=== PATIENT | male | born 1960 | race Caucasian/White ===

== ENCOUNTER → 2016-09-26 | Outpatient (REF) | payer BC ==
[~2016-09-26] MED LIST: /TAMS4CA PO; ACET50TA PO; ASPI81TA7 PO; Albuterol Inhaler INH; DICL75TA PO; IMIT50TA PO; LEVO500T PO; LIPI80TA PO; PRIN10TA PO; SENN8.6T7 PO; VITA10002 PO; ZANT150T PO
[2016-09-26 11:34] LABS: ALBUMIN 3.9 GM/DL (3.2-5.2); ALBUMIN/GLOBULIN RATIO 1.05 (1.00-1.93); ALKALINE PHOSPHATASE 91 U/L (45-117); ALT/SGPT 57 U/L (12-78); ANION GAP 9 MEQ/L (8-16); AST/SGOT 29 U/L (15-37); BILIRUBIN,TOTAL 0.5 MG/DL (0.2-1.0); BLOOD UREA NITROGEN 23 MG/DL (7-18); CARBON DIOXIDE LEVEL 28 MEQ/L (21-32); CHLORIDE LEVEL 104 MEQ/L (98-107); CHOLESTEROL LEVEL 267 MG/DL (<200); CREATININE FOR GFR 1.28 MG/DL (0.70-1.30); GLOMERULAR FILTRATION RATE > 60.0 (>56); GLUCOSE, FASTING 108 MG/DL (70-105); SODIUM LEVEL 141 MEQ/L (136-145); TOTAL PROTEIN 7.6 GM/DL (6.4-8.2); TRIGLYCERIDES LEVEL 169 MG/DL (<150)
== END ==
LOC: M SFHCPLAZ 08:46
PROVIDERS: ATTEND Family Medicine
DX: E78.5 Hyperlipidemia, unspecified (principal); R73.01 Impaired fasting glucose; K21.9 Gastro-esophageal reflux disease without esophagitis

== ENCOUNTER 2016-10-29 13:35 | Emergency (ER) | payer BC ==
--- NOTE | 2016-10-29 14:36 | REP ---
Right hand series: Four views. History: Trauma. Findings: Four views right hand demonstrate a dressing overlying a partial soft tissue amputation of the distal tuft of the ring finger. No evidence of fracture or opaque foreign body seen on these views. Signed by Shantanu Shirley MD 10/29/2016 03:06 P
[2016-10-29] MEDS ORDERED: PERCOCET 5MG/325MG TAB As Ordered ONE (14:40)
[2016-10-29] MEDS ORDERED: CLINDAMYCIN 150 MG CAP As Ordered ONE (14:40)
[2016-10-29] MEDS ORDERED: ADACEL/BOOSTRIX VACCINE (DIPHTH/PERTUSS/ACELL/TETANUS)0.5ML SYR (90715) As Ordered ONE (14:40)
--- NOTE | 2016-10-29 15:34 | EDDOCDS ---
Nurse's Notes [facility] Name: Tommie Lopez Age: 56 yrs Sex: Male : 1960 Arrival Date: 10/29/2016 Time: 13:35 Bed 7 Private MD: Ronnie Lai E. 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 We gave 5 mg of morphine and 4 mg of zofran en route". Suicide/Homicide risk assessment- the patient denies having any suicidal and/or homicidal ideations and does not present with any other emotional, behavioral or mental health complaints. Status: Patient is not a financial services rep or dependent. Transition of care: patient was not received from another setting of care. Care prior to arrival: See EMS report. 13:41 Acuity: BENJAMIN Level 3 mb9 13:41 Method Of Arrival: Ambulance mb9 Triage Assessment: 13:47 General: Appears uncomfortable. Pain: Location: dorsal aspect of distal phalanx of mb9 right ring finger and right ring fingernail Pain currently is 3 out of 10 on a pain scale. Pt Declines HIV testing. The patient is triaged at the bedside. See Assessment in Nurses Notes section of ED record. Neurological: Level of Consciousness is awake, alert, Oriented to person, place, time. Respiratory: Airway is patent Respiratory effort is even, unlabored. Injury Description: Amputation sustained to dorsal aspect of distal phalanx of right ring finger. Historical: - Allergies: Codeine Sulfate (Vomit); Keflex (Vomit); PENICILLINS (Hives); Ampicillin; - Home Meds: 1. omeprazole 40 mg Oral cpDR 1 cap once daily 2. Vesicare 10 mg oral tab 1 tab once daily 3. ezetimibe 10 mg oral tab 1 tab once daily 4. lisinopril 10 mg Oral tab 1 tab once daily 5. ranitidine HCl 150 mg Oral cap 1 cap once daily 6. gabapentin 300 mg Oral tab as needed 7. aspirin 81 mg Oral tab 1 tab once daily - PMHx: cervival disc problems; GERD; Hypercholesterolemia; Hypertension; Urinary Incontinence; one functioning kidney; - PSHx: prostate surgery; Cholecystectomy; - Social history: Smoking status: Patient states former smoker of tobacco. No barriers to communication noted, The patient speaks fluent Turkmen. - Family history: Not pertinent. - : The pt / caregiver states he / she is not on anticoagulants. Unable to Verify Home Med List with the patient / caregiver. Note will obtain from pt's pharmacy. - Exposure Risk Screening:: None identified. Screenin:30 Screening information is obtained from the patient. Fall risk: No risks identified. [facility] Assistance ADL's: requires no assistance with activities of daily living. Abuse/DV Screen: The patient / caregiver reports he/she is: not in a situation that causes fear, pain or injury. Nutritional screening: No deficits noted. Advance Directives: There is no active DNR order. home support is adequate. Assessment: 14:54 General: Appears in no apparent distress, comfortable, Behavior is appropriate for age, h cooperative, pleasant. Pain: Location: right hand Pain currently is 10 out of 10 on a pain scale. Neurological: Level of Consciousness is awake, alert, Oriented to person, place, time. Respiratory: Airway is patent Respiratory effort is even, unlabored, Respiratory pattern is regular, symmetrical. Derm: Skin is pink, warm & dry. Musculoskeletal: Range of motion limited in right wrist and right hand and right ring fingernail and dorsal aspect of distal phalanx of right ring finger. Injury Description: Amputation sustained to right ring fingernail and dorsal aspect of distal phalanx of right ring finger is complete, was sustained 1-2 hours ago. 15:30 General: Appears in no apparent distress, comfortable, Behavior is appropriate for age, [facility] cooperative, reviewed discharge instructions with patient and spouse, encouraged and answered questions, bandage in tact to right hand, no visible drainage noted. Reviewed vital signs and wound care with provider then patient. Vital Signs: 13:44 BP 183 / 100 RA Sitting (auto/reg); Pulse 103; Resp 18; Temp 97.0(O); Pulse Ox 93% on jrd R/A; Weight 81.65 kg (R); Height 5 ft. 7 in. (170.18 cm) (R); Pain 3/10; 15:30 BP 178 / 100; Pulse 89; Resp 18; Temp 97.7; Pulse Ox 92% ; Pain 6/10; cjh 13:44 Body Mass Index 28.19 (81.65 kg, 170.18 cm) d Vitals: 13:47 Log In Time N/A - ambulance arrival. mb9 ED Course: 13:36 Patient visited by Jeanie Werner, Assembling Motor Builder. lbd 13:36 Patient moved to Waiting lbd 13:37 Ronnie Lai is Private Physician. lbd 13:37 Patient moved to 7 lbd 13:45 Patient visited by Tucker Lakhani, GARRET. jrd 13:45 Triage Initiated mb9 14:07 [facility] ke 14:08 Patient visited by Quinn Israel FNP. ke 14:08 Patient visited by Quinn Israel FNP. ke 14:40 Hand, Complete Returned. EDMS 14:47 Patient visited by Quinn Israel FNP. ke 14:58 Noel Gamez is Referral Physician. ke 15:32 The patient / caregiver is instructed regarding the plan of care and ED course. cj 15:32 Discontinued lock intact, bleeding controlled, pressure dressing applied, No [facility] redness/swelling at site. No procedures done that require assistance. Administered Medications: 14:54 Drug: Tetanus- Diptheria-Acellular Pertussis 0.5 ml [diphth,pertussis(acel),tetanus 2.5 [facility] Lf unit-8 mcg-5 Lf/0.5mL IM syringe (0.5 mL)] {Blasting Helper: [employer]. Exp: 11/06/2018. Lot #: [id number]. } Route: IM; Site: left deltoid; 14:54 Drug: oxyCODONE-acetaminophen 2 tabs [oxycodone-acetaminophen 5 mg-325 mg tablet (2 cjh tabs)] Route: PO; 15:33 Follow up: Response: Confirmed pt not driving.; No Adverse Reaction; Pain is decreased [facility] 14:54 Drug: Clindamycin 300 mg [clindamycin 150 mg capsule (2 caps)] Route: PO; [facility] Order Results: Radiology Order: Hand, Complete Test: Hand, Complete REASON FOR EXAMINATION: Trauma; Right hand series: Four views.; ; History: Trauma.; ; Findings: Four views right hand demonstrate a dressing overlying a partial soft; tissue amputation of the distal tuft of the ring finger. No evidence of fracture; or opaque foreign body seen on these views.; ; ; Signed by; Shantanu Shirley MD 10/29/2016 03:06 P; Outcome: 14:59 Discharge ordered by Provider. david 15:32 Discharge Assessment: Patient awake, alert and oriented x 3. No cognitive and/or [facility] functional deficits noted. Patient verbalized understanding of disposition instructions. patient administered narcotics - yes. Pt provided with safe discharge. The following High Risk Discharge criteria are identified: None. Discharged to home ambulatory, with significant other. Condition: good Condition: stable Condition: improved. Discharge instructions given to patient, Instructed on discharge instructions, follow up and referral plans. medication usage, no driving heavy equipment, wound care, no drinking with medication, Demonstrated understanding of instructions, medications, Pt was receptive of discharge instructions/ teaching. Prescriptions given X 2. No special radiology studies were completed. Property :Personal belongings accompany Pt. 15:33 Patient left the ED. [facility] Signatures: Dispatcher [employer] EDMS Jeanie Werner, Assembling Motor Builder Unit lbd Milo PerezRN RN Quinn Alvares, BEVERAGE HOST BEVERAGE HOST Kristina WeberRN RN [facility] Tucker Lakhani, PROMOTIONS DIRECTOR PROMOTIONS DIRECTOR Diallo Short,RN RN mb9 LORENA
--- NOTE | 2016-10-29 15:34 | EDDOCDS ---
Physician Documentation [facility] Name: Tommie Lopez Age: 56 yrs Sex: Male : 1960 Arrival Date: 10/29/2016 Time: 13:35 Bed 7 Private MD: Ronnie Lai E. Disposition: 10/29/16 14:59 Discharged to Home/Self Care. 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 - Condition is Stable. - Discharge Instructions: Fingertip Injuries and Amputations. - Prescriptions for Clindamycin HCl 300 mg Oral Capsule - take 1 capsule by ORAL route every 6 hours; 40 capsule. Percocet 5- 325 mg Oral Tablet - take 1 tablet by ORAL route every 6 hours As needed MDD: 6 tabs; 30 tablet. - Medication Reconciliation, Local Pharmacy Hours form. - Follow up: Noel Gamez; When: Call to arrange an appointment; Reason: Wound/Symptom Recheck, Further diagnostic work-up, Continuance of care. - Problem is new. - Symptoms are unchanged. Historical: - Allergies: Codeine Sulfate (Vomit); Keflex (Vomit); PENICILLINS (Hives); Ampicillin; - Home Meds: 1. omeprazole 40 mg Oral cpDR 1 cap once daily 2. Vesicare 10 mg oral tab 1 tab once daily 3. ezetimibe 10 mg oral tab 1 tab once daily 4. lisinopril 10 mg Oral tab 1 tab once daily 5. ranitidine HCl 150 mg Oral cap 1 cap once daily 6. gabapentin 300 mg Oral tab as needed 7. aspirin 81 mg Oral tab 1 tab once daily - PMHx: cervival disc problems; GERD; Hypercholesterolemia; Hypertension; Urinary Incontinence; one functioning kidney; - PSHx: prostate surgery; Cholecystectomy; - Social history: Smoking status: Patient states former smoker of tobacco. No barriers to communication noted, The patient speaks fluent Ghanaian. - Family history: Not pertinent. - : The pt / caregiver states he / she is not on anticoagulants. Unable to Verify Home Med List with the patient / caregiver. Note will obtain from pt's pharmacy. - Exposure Risk Screening:: None identified. Vital Signs: 10/29 13:44 BP 183 / 100 RA Sitting (auto/reg); Pulse 103; Resp 18; Temp 97.0(O); Pulse Ox 93% on jrd R/A; Weight 81.65 kg / 180.01 lbs (R); Height 5 ft. 7 in. (170.18 cm) (R); Pain 3/10; 15:30 BP 178 / 100; Pulse 89; Resp 18; Temp 97.7; Pulse Ox 92% ; Pain 6/10; cj 13:44 Body Mass Index 28.19 (81.65 kg, 170.18 cm) jrd MDM: 13:49 Hand, Complete Ordered. EDMS 14:26 Tetanus- Diptheria-Acellular Pertussis 0.5 ml IM once; Routine booster 10-64yrs, >64 ke with child contact [employer] [place] [employer] ordered. 14:26 oxyCODONE-acetaminophen 5 mg-325 mg 2 tabs PO once ordered. ke 14:26 Clindamycin 300 mg PO once ordered. ke Administered Medications: 14:54 Drug: Tetanus- Diptheria-Acellular Pertussis 0.5 ml [diphth,pertussis(acel),tetanus 2.5 cj Lf unit-8 mcg-5 Lf/0.5mL IM syringe (0.5 mL)] {Rod Welder: [employer]. Exp: 11/06/2018. Lot #: [id number]. } Route: IM; Site: left deltoid; 14:54 Drug: oxyCODONE-acetaminophen 2 tabs [oxycodone-acetaminophen 5 mg-325 mg tablet (2 cjh tabs)] Route: PO; 15:33 Follow up: Response: Confirmed pt not driving.; No Adverse Reaction; Pain is decreased [facility] 14:54 Drug: Clindamycin 300 mg [clindamycin 150 mg capsule (2 caps)] Route: PO; [facility] Signatures: Dispatcher [employer] EDMS Milo Perez,RN RN Quinn Alvares, TITLE I DIRECTOR TITLE I DIRECTOR Kristina WeberRN RN Diallo BooRN RN mb9 MTDD
--- NOTE | 2016-10-31 16:34 | EDDOCDS ---
Physician Documentation [facility] Name: Tommie Lopez Age: 56 yrs Sex: Male : 1960 Arrival Date: 10/29/2016 Time: 13:35 Bed 7 Private MD: Ronnie Lai E. Disposition: 10/29/16 14:59 Discharged to Home/Self Care. 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 - Condition is Stable. - Discharge Instructions: Fingertip Injuries and Amputations. - Prescriptions for Clindamycin HCl 300 mg Oral Capsule - take 1 capsule by ORAL route every 6 hours; 40 capsule. Percocet 5- 325 mg Oral Tablet - take 1 tablet by ORAL route every 6 hours As needed MDD: 6 tabs; 30 tablet. - Medication Reconciliation, Local Pharmacy Hours form. - Follow up: Noel Gamez; When: Call to arrange an appointment; Reason: Wound/Symptom Recheck, Further diagnostic work-up, Continuance of care. - Problem is new. - Symptoms are unchanged. Historical: - Allergies: Codeine Sulfate (Vomit); Keflex (Vomit); PENICILLINS (Hives); Ampicillin; - Home Meds: 1. omeprazole 40 mg Oral cpDR 1 cap once daily 2. Vesicare 10 mg oral tab 1 tab once daily 3. ezetimibe 10 mg oral tab 1 tab once daily 4. lisinopril 10 mg Oral tab 1 tab once daily 5. ranitidine HCl 150 mg Oral cap 1 cap once daily 6. gabapentin 300 mg Oral tab as needed 7. aspirin 81 mg Oral tab 1 tab once daily - PMHx: cervival disc problems; GERD; Hypercholesterolemia; Hypertension; Urinary Incontinence; one functioning kidney; - PSHx: prostate surgery; Cholecystectomy; - Social history: Smoking status: Patient states former smoker of tobacco. No barriers to communication noted, The patient speaks fluent Ukrainian. - Family history: Not pertinent. - : The pt / caregiver states he / she is not on anticoagulants. Unable to Verify Home Med List with the patient / caregiver. Note will obtain from pt's pharmacy. - Exposure Risk Screening:: None identified. Vital Signs: 10/29 13:44 BP 183 / 100 RA Sitting (auto/reg); Pulse 103; Resp 18; Temp 97.0(O); Pulse Ox 93% on jrd R/A; Weight 81.65 kg / 180.01 lbs (R); Height 5 ft. 7 in. (170.18 cm) (R); Pain 3/10; 15:30 BP 178 / 100; Pulse 89; Resp 18; Temp 97.7; Pulse Ox 92% ; Pain 6/10; cjh 13:44 Body Mass Index 28.19 (81.65 kg, 170.18 cm) jrd MDM: 13:49 Hand, Complete Ordered. EDMS 14:26 Tetanus- Diptheria-Acellular Pertussis 0.5 ml IM once; Routine booster 10-64yrs, >64 ke with child contact [employer] ordered. 14:26 oxyCODONE-acetaminophen 5 mg-325 mg 2 tabs PO once ordered. ke 14:26 Clindamycin 300 mg PO once ordered. ke 15:49 [facility] Payment Agreement was scanned into [employer] and attached to record. 10/30 13:28 T-Sheet-- Draft Copy was scanned into [employer] and attached to record. gb 13:28 PCR was scanned into [employer] and attached to record. gb 13:29 Rhythm Strip was scanned into [employer] and attached to record. gb Administered Medications: 10/29 14:54 Drug: Tetanus- Diptheria-Acellular Pertussis 0.5 ml [diphth,pertussis(acel),tetanus 2.5 [facility] Lf unit-8 mcg-5 Lf/0.5mL IM syringe (0.5 mL)] {Acoustic Sensor Operator: [employer]. Exp: 11/06/2018. Lot #: [id number]. } Route: IM; Site: left deltoid; 14:54 Drug: oxyCODONE-acetaminophen 2 tabs [oxycodone-acetaminophen 5 mg-325 mg tablet (2 cjh tabs)] Route: PO; 15:33 Follow up: Response: Confirmed pt not driving.; No Adverse Reaction; Pain is decreased [facility] 14:54 Drug: Clindamycin 300 mg [clindamycin 150 mg capsule (2 caps)] Route: PO; [facility] Signatures: Dispatcher [employer] EDMS Milo Perez,ELIAS RN Danelle Eduardo, Reg Reg gb Zac Hayden, Reg Reg lg Quinn Israel, ELECTRIC MOTOR ANALYST ELECTRIC MOTOR ANALYST Kristina WeberRN RN cj Diallo GarciaRN RN mb9 The chart was reviewed and I authenticate all verbal orders and agree with the evaluation and treatment provided.Attachments: 15:49 [facility] Payment Agreement lg 10/30 13:28 T-Sheet-- Draft Copy gb Chart Complete MTDD
--- NOTE | 2016-10-31 16:34 | EDDOCDS ---
Nurse's Notes [facility] Name: Tommie Lopez Age: 56 yrs Sex: Male : 1960 Arrival Date: 10/29/2016 Time: 13:35 Bed 7 Private MD: Ronnie Lai E. 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 We gave 5 mg of morphine and 4 mg of zofran en route". Suicide/Homicide risk assessment- the patient denies having any suicidal and/or homicidal ideations and does not present with any other emotional, behavioral or mental health complaints. Status: Patient is not a creative services writer or dependent. Transition of care: patient was not received from another setting of care. Care prior to arrival: See EMS report. 13:41 Acuity: BENJAMIN Level 3 mb9 13:41 Method Of Arrival: Ambulance mb9 Triage Assessment: 13:47 General: Appears uncomfortable. Pain: Location: dorsal aspect of distal phalanx of mb9 right ring finger and right ring fingernail Pain currently is 3 out of 10 on a pain scale. Pt Declines HIV testing. The patient is triaged at the bedside. See Assessment in Nurses Notes section of ED record. Neurological: Level of Consciousness is awake, alert, Oriented to person, place, time. Respiratory: Airway is patent Respiratory effort is even, unlabored. Injury Description: Amputation sustained to dorsal aspect of distal phalanx of right ring finger. Historical: - Allergies: Codeine Sulfate (Vomit); Keflex (Vomit); PENICILLINS (Hives); Ampicillin; - Home Meds: 1. omeprazole 40 mg Oral cpDR 1 cap once daily 2. Vesicare 10 mg oral tab 1 tab once daily 3. ezetimibe 10 mg oral tab 1 tab once daily 4. lisinopril 10 mg Oral tab 1 tab once daily 5. ranitidine HCl 150 mg Oral cap 1 cap once daily 6. gabapentin 300 mg Oral tab as needed 7. aspirin 81 mg Oral tab 1 tab once daily - PMHx: cervival disc problems; GERD; Hypercholesterolemia; Hypertension; Urinary Incontinence; one functioning kidney; - PSHx: prostate surgery; Cholecystectomy; - Social history: Smoking status: Patient states former smoker of tobacco. No barriers to communication noted, The patient speaks fluent Dominican. - Family history: Not pertinent. - : The pt / caregiver states he / she is not on anticoagulants. Unable to Verify Home Med List with the patient / caregiver. Note will obtain from pt's pharmacy. - Exposure Risk Screening:: None identified. Screenin:30 Screening information is obtained from the patient. Fall risk: No risks identified. [facility] Assistance ADL's: requires no assistance with activities of daily living. Abuse/DV Screen: The patient / caregiver reports he/she is: not in a situation that causes fear, pain or injury. Nutritional screening: No deficits noted. Advance Directives: There is no active DNR order. home support is adequate. Assessment: 14:54 General: Appears in no apparent distress, comfortable, Behavior is appropriate for age, h cooperative, pleasant. Pain: Location: right hand Pain currently is 10 out of 10 on a pain scale. Neurological: Level of Consciousness is awake, alert, Oriented to person, place, time. Respiratory: Airway is patent Respiratory effort is even, unlabored, Respiratory pattern is regular, symmetrical. Derm: Skin is pink, warm & dry. Musculoskeletal: Range of motion limited in right wrist and right hand and right ring fingernail and dorsal aspect of distal phalanx of right ring finger. Injury Description: Amputation sustained to right ring fingernail and dorsal aspect of distal phalanx of right ring finger is complete, was sustained 1-2 hours ago. 15:30 General: Appears in no apparent distress, comfortable, Behavior is appropriate for age, [facility] cooperative, reviewed discharge instructions with patient and spouse, encouraged and answered questions, bandage in tact to right hand, no visible drainage noted. Reviewed vital signs and wound care with provider then patient. Vital Signs: 13:44 BP 183 / 100 RA Sitting (auto/reg); Pulse 103; Resp 18; Temp 97.0(O); Pulse Ox 93% on jrd R/A; Weight 81.65 kg (R); Height 5 ft. 7 in. (170.18 cm) (R); Pain 3/10; 15:30 BP 178 / 100; Pulse 89; Resp 18; Temp 97.7; Pulse Ox 92% ; Pain 6/10; cjh 13:44 Body Mass Index 28.19 (81.65 kg, 170.18 cm) jrd Vitals: 13:47 Log In Time N/A - ambulance arrival. mb9 ED Course: 13:36 Patient visited by Jeanie Werner, Cafeteria Attendant. lbd 13:36 Patient moved to Waiting lbd 13:37 Ronnie Lai is Private Physician. lbd 13:37 Patient moved to 7 lbd 13:45 Patient visited by Tucker Lakhani, GARRET. jrd 13:45 Triage Initiated mb9 14:07 Quinn Israel FNP is PHCP. ke 14:08 Patient visited by Quinn Israel FNP. ke 14:08 Patient visited by Quinn Israel FNP. ke 14:40 Hand, Complete Returned. EDMS 14:47 Patient visited by Quinn Israel FNP. ke 14:58 Noel Gamez is Referral Physician. ke 15:32 The patient / caregiver is instructed regarding the plan of care and ED course. cjh 15:32 Discontinued lock intact, bleeding controlled, pressure dressing applied, No cjh redness/swelling at site. No procedures done that require assistance. 15:49 [facility] Payment Agreement was scanned into [employer] and attached to record. lg 10/30 13:28 T-Sheet-- Draft Copy was scanned into [employer] and attached to record. gb 13:28 PCR was scanned into [employer] and attached to record. gb 13:29 Rhythm Strip was scanned into [employer] and attached to record. gb Administered Medications: 10/29 14:54 Drug: Tetanus- Diptheria-Acellular Pertussis 0.5 ml [diphth,pertussis(acel),tetanus 2.5 cj Lf unit-8 mcg-5 Lf/0.5mL IM syringe (0.5 mL)] {Assistant Men'S Soccer Coach: [employer]. Exp: 11/06/2018. Lot #: [id number]. } Route: IM; Site: left deltoid; 14:54 Drug: oxyCODONE-acetaminophen 2 tabs [oxycodone-acetaminophen 5 mg-325 mg tablet (2 cjh tabs)] Route: PO; 15:33 Follow up: Response: Confirmed pt not driving.; No Adverse Reaction; Pain is decreased [facility] 14:54 Drug: Clindamycin 300 mg [clindamycin 150 mg capsule (2 caps)] Route: PO; [facility] Attachments: 13:29 Rhythm Strip gb Order Results: Radiology Order: Hand, Complete Test: Hand, Complete REASON FOR EXAMINATION: Trauma; Right hand series: Four views.; ; History: Trauma.; ; Findings: Four views right hand demonstrate a dressing overlying a partial soft; tissue amputation of the distal tuft of the ring finger. No evidence of fracture; or opaque foreign body seen on these views.; ; ; Signed by; Shantanu Shirley MD 10/29/2016 03:06 P; Outcome: 10/29 14:59 Discharge ordered by Provider. david 15:32 Discharge Assessment: Patient awake, alert and oriented x 3. No cognitive and/or [facility] functional deficits noted. Patient verbalized understanding of disposition instructions. patient administered narcotics - yes. Pt provided with safe discharge. The following High Risk Discharge criteria are identified: None. Discharged to home ambulatory, with significant other. Condition: good Condition: stable Condition: improved. Discharge instructions given to patient, Instructed on discharge instructions, follow up and referral plans. medication usage, no driving heavy equipment, wound care, no drinking with medication, Demonstrated understanding of instructions, medications, Pt was receptive of discharge instructions/ teaching. Prescriptions given X 2. No special radiology studies were completed. Property :Personal belongings accompany Pt. 15:33 Patient left the ED. [facility] Signatures: Dispatcher [employer] EDMS Jeanie Werner, Cafeteria Attendant Unit lbd Milo Perez,RN RN antwank Danelle Hansen, Reg Reg gb Zac Hayden, Reg Reg lg Quinn Israel, HIGH DENSITY PRESS OPERATOR HIGH DENSITY PRESS OPERATOR Kristina WeberRN RN [facility] Tucker Lakhani, GARRET GEODETIC ADVISOR Diallo Short,RN RN mb9 Chart Complete MTDD
--- NOTE | 2016-10-31 16:34 | EDDOCDS ---
Physician Documentation [facility] Name: Tommie Lopez Age: 56 yrs Sex: Male : 1960 Arrival Date: 10/29/2016 Time: 13:35 Bed 7 Private MD: Ronnie Lai E. Disposition: 10/29/16 14:59 Discharged to Home/Self Care. 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 - Condition is Stable. - Discharge Instructions: Fingertip Injuries and Amputations. - Prescriptions for Clindamycin HCl 300 mg Oral Capsule - take 1 capsule by ORAL route every 6 hours; 40 capsule. Percocet 5- 325 mg Oral Tablet - take 1 tablet by ORAL route every 6 hours As needed MDD: 6 tabs; 30 tablet. - Medication Reconciliation, Local Pharmacy Hours form. - Follow up: Noel Gamez; When: Call to arrange an appointment; Reason: Wound/Symptom Recheck, Further diagnostic work-up, Continuance of care. - Problem is new. - Symptoms are unchanged. Historical: - Allergies: Codeine Sulfate (Vomit); Keflex (Vomit); PENICILLINS (Hives); Ampicillin; - Home Meds: 1. omeprazole 40 mg Oral cpDR 1 cap once daily 2. Vesicare 10 mg oral tab 1 tab once daily 3. ezetimibe 10 mg oral tab 1 tab once daily 4. lisinopril 10 mg Oral tab 1 tab once daily 5. ranitidine HCl 150 mg Oral cap 1 cap once daily 6. gabapentin 300 mg Oral tab as needed 7. aspirin 81 mg Oral tab 1 tab once daily - PMHx: cervival disc problems; GERD; Hypercholesterolemia; Hypertension; Urinary Incontinence; one functioning kidney; - PSHx: prostate surgery; Cholecystectomy; - Social history: Smoking status: Patient states former smoker of tobacco. No barriers to communication noted, The patient speaks fluent [place]i. - Family history: Not pertinent. - : The pt / caregiver states he / she is not on anticoagulants. Unable to Verify Home Med List with the patient / caregiver. Note will obtain from pt's pharmacy. - Exposure Risk Screening:: None identified. Vital Signs: 10/29 13:44 BP 183 / 100 RA Sitting (auto/reg); Pulse 103; Resp 18; Temp 97.0(O); Pulse Ox 93% on jrd R/A; Weight 81.65 kg / 180.01 lbs (R); Height 5 ft. 7 in. (170.18 cm) (R); Pain 3/10; 15:30 BP 178 / 100; Pulse 89; Resp 18; Temp 97.7; Pulse Ox 92% ; Pain 6/10; cjh 13:44 Body Mass Index 28.19 (81.65 kg, 170.18 cm) jrd MDM: 13:49 Hand, Complete Ordered. EDMS 14:26 Tetanus- Diptheria-Acellular Pertussis 0.5 ml IM once; Routine booster 10-64yrs, >64 ke with child contact [employer] ordered. 14:26 oxyCODONE-acetaminophen 5 mg-325 mg 2 tabs PO once ordered. ke 14:26 Clindamycin 300 mg PO once ordered. ke 15:49 [facility] Payment Agreement was scanned into [employer] and attached to record. 10/30 13:28 T-Sheet-- Draft Copy was scanned into [employer] and attached to record. gb 13:28 PCR was scanned into [employer] and attached to record. gb 13:29 Rhythm Strip was scanned into [employer] and attached to record. gb Administered Medications: 10/29 14:54 Drug: Tetanus- Diptheria-Acellular Pertussis 0.5 ml [diphth,pertussis(acel),tetanus 2.5 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 Exp: 11/06/2018. Lot #: [id number]. } Route: IM; Site: left deltoid; 14:54 Drug: oxyCODONE-acetaminophen 2 tabs [oxycodone-acetaminophen 5 mg-325 mg tablet (2 cjh tabs)] Route: PO; 15:33 Follow up: Response: Confirmed pt not driving.; No Adverse Reaction; Pain is decreased [facility] 14:54 Drug: Clindamycin 300 mg [clindamycin 150 mg capsule (2 caps)] Route: PO; [facility] Signatures: Dispatcher [employer] EDMS Milo Perez,ELIAS RN Danelle Eduardo, Reg Reg gb Zac Hayden, Reg Reg lg Quinn Israel, SENIOR SPEECH PATHOLOGIST SENIOR SPEECH PATHOLOGIST Kristina WeberRN RN cj Diallo GarciaRN RN [id number] The chart was reviewed and I authenticate all verbal orders and agree with the evaluation and treatment provided.Attachments: 15:49 [facility] Payment Agreement lg 10/30 13:28 T-Sheet-- Draft Copy gb Chart Complete MTDD
== END 2016-10-29 15:33 | disposition home or self-care (01) ==
LOC: M ED 13:35
DX: S68.624A Partial traumatic transphalangeal amputation of right ring finger, initial encounter (principal); W23.0XXA Caught, crushed, jammed, or pinched between moving objects, initial encounter; Y92.018 Other place in single-family (private) house as the place of occurrence of the external cause; Y93.H9 Activity, other involving exterior property and land maintenance, building and construction; Y99.8 Other external cause status; I10 Essential (primary) hypertension; E78.00 Pure hypercholesterolemia, unspecified; R32 Unspecified urinary incontinence; N28.9 Disorder of kidney and ureter, unspecified; K21.9 Gastro-esophageal reflux disease without esophagitis; M50.80 Other cervical disc disorders, unspecified cervical region; Z79.899 Other long term (current) drug therapy; Z79.82 Long term (current) use of aspirin; Z88.5 Allergy status to narcotic agent; Z88.1 Allergy status to other antibiotic agents; Z88.0 Allergy status to penicillin; Z87.891 Personal history of nicotine dependence

== ENCOUNTER → 2017-01-30 | Outpatient (REF) | payer BC ==
[2017-01-30 12:38] LABS: ALKALINE PHOSPHATASE 89 U/L (45-117); ALT/SGPT 61 U/L (12-78); ANION GAP 7 MEQ/L (8-16); AST/SGOT 35 U/L (15-37); BILIRUBIN,TOTAL 0.7 MG/DL (0.2-1.0); BLOOD UREA NITROGEN 21 MG/DL (7-18); CALCIUM LEVEL 9.4 MG/DL (8.5-10.1); CARBON DIOXIDE LEVEL 27 MEQ/L (21-32); CHLORIDE LEVEL 104 MEQ/L (98-107); CHOLESTEROL LEVEL 140 MG/DL (<200); CREATININE FOR GFR 1.18 MG/DL (0.70-1.30); GLOMERULAR FILTRATION RATE > 60.0 (>56); GLUCOSE, FASTING 100 MG/DL (70-105); SODIUM LEVEL 138 MEQ/L (136-145); TRIGLYCERIDES LEVEL 71 MG/DL (<150)
[2017-01-30 12:40] LABS: POTASSIUM SERUM 5.3 MEQ/L (3.5-5.1)
== END ==
LOC: M SFHCPLAZ 09:15
PROVIDERS: ATTEND Family Medicine
DX: Z11.59 Encounter for screening for other viral diseases (principal); E78.5 Hyperlipidemia, unspecified; N18.2 Chronic kidney disease, stage 2 (mild); R73.01 Impaired fasting glucose

== ENCOUNTER → 2017-07-07 | Outpatient (REF) | payer BC ==
[2017-07-07 12:23] LABS: BASO # 0.1 10^3/uL (0.0-0.2); BASO % 0.7 % (0.0-1.0); EOS # 0.2 10^3/uL (0.0-0.50); IMMATURE GRANULOCYTE % 0.4 % (0-0); LYMPH # 2.4 10^3/uL (1.5-4.5); LYMPH % 27.1 % (24.0-44.0); MEAN CORPUSCULAR HEMOGLOBIN 31.3 pg (27.0-33.0); MEAN CORPUSCULAR HGB CONC 32.9 g/dl (32.0-36.5); MEAN CORPUSCULAR VOLUME 95.2 fl (80.0-96.0); MONO # 1.1 10^3/uL (0.0-0.8); MONO % 12.6 % (0.0-5.0); NEUTROPHILS # 5.1 10^3/uL (1.8-7.7); NEUTROPHILS % 57.2 % (36.0-66.0); PLATELET COUNT, AUTOMATED 491 10^3/uL (150-450)
[2017-07-07 12:42] LABS: ALBUMIN 3.9 GM/DL (3.2-5.2); ALBUMIN/GLOBULIN RATIO 0.95 (1.00-1.93); ALKALINE PHOSPHATASE 99 U/L (45-117); ALT/SGPT 36 U/L (12-78); ANION GAP 7 MEQ/L (8-16); AST/SGOT 20 U/L (15-37); BILIRUBIN,TOTAL 0.5 MG/DL (0.2-1.0); BLOOD UREA NITROGEN 20 MG/DL (7-18); CALCIUM LEVEL 9.7 MG/DL (8.5-10.1); CARBON DIOXIDE LEVEL 28 MEQ/L (21-32); CHLORIDE LEVEL 104 MEQ/L (98-107); CREATININE FOR GFR 1.13 MG/DL (0.70-1.30); GLOMERULAR FILTRATION RATE > 60.0 (>56); GLUCOSE, FASTING 103 MG/DL (70-105); SODIUM LEVEL 139 MEQ/L (136-145)
[2017-07-07 12:44] LABS: POTASSIUM SERUM 5.4 MEQ/L (3.5-5.1)
== END ==
LOC: M SFHCPLAZ 09:21
PROVIDERS: ATTEND Family Medicine
DX: N18.2 Chronic kidney disease, stage 2 (mild) (principal); R73.01 Impaired fasting glucose

== ENCOUNTER → 2018-02-25 | Outpatient (REF) | payer BC ==
[2018-02-25 12:13] LABS: BASO # 0.1 10^3/uL (0.0-0.2); BASO % 0.9 % (0.0-1.0); EOS # 0.2 10^3/uL (0.0-0.50); EOS % 2.8 % (0.0-3.0); HEMATOCRIT 47.2 % (42.0-52.0); HEMOGLOBIN 15.8 g/dl (13.5-17.5); IMMATURE GRANULOCYTE % 0.4 % (0-3.0); LYMPH # 2.7 10^3/uL (1.5-4.5); LYMPH % 33.2 % (24.0-44.0); MEAN CORPUSCULAR HEMOGLOBIN 31.5 pg (27.0-33.0); MEAN CORPUSCULAR HGB CONC 33.5 g/dl (32.0-36.5); MONO # 0.9 10^3/uL (0.0-0.8); MONO % 11.4 % (0.0-5.0); NEUTROPHILS # 4.2 10^3/uL (1.8-7.7); NEUTROPHILS % 51.3 % (36.0-66.0); PLATELET COUNT, AUTOMATED 381 10^3/uL (150-450); RED BLOOD COUNT 5.02 10^6/uL (4.30-6.10); RED CELL DISTRIBUTION WIDTH 13.3 % (11.5-14.5); WHITE BLOOD COUNT 8.2 10^3/uL (4.0-10.0)
[2018-02-25 12:35] LABS: ESTIMATED AVERAGE GLUCOSE 120 MG/DL (60-110); HEMOGLOBIN A1c 5.8 %
[2018-02-25 13:06] LABS: ALBUMIN 4.2 GM/DL (3.2-5.2); ALBUMIN/GLOBULIN RATIO 1.14 (1.00-1.93); ALKALINE PHOSPHATASE 105 U/L (45-117); ALT/SGPT 44 U/L (12-78); ANION GAP 7 MEQ/L (8-16); AST/SGOT 34 U/L (7-37); BILIRUBIN,TOTAL 0.8 MG/DL (0.2-1.0); BLOOD UREA NITROGEN 19 MG/DL (7-18); CALCIUM LEVEL 9.2 MG/DL (8.5-10.1); CARBON DIOXIDE LEVEL 27 MEQ/L (21-32); CHLORIDE LEVEL 106 MEQ/L (98-107); CHOLESTEROL LEVEL 233 MG/DL (<200); CHOLESTEROL RISK RATIO 3.883 (<5); CREATININE FOR GFR 1.21 MG/DL (0.70-1.30); FERRITIN 179 NG/ML (26-388); GLOMERULAR FILTRATION RATE > 60.0 (>56); GLUCOSE, FASTING 94 MG/DL (70-100); HDL CHOLESTEROL 60 MG/DL (>40); IRON (FE) 128 UG/DL (65-175); LDL CHOLESTEROL 159.8 MG/DL (<100); MAGNESIUM LEVEL 2.3 MG/DL (1.8-2.4); NON-HDL-C 173 MG/DL; PERCENT SATURATION 36.7 % (19.7-50.0); PSA SCREENING < 0.01 NG/ML (< 4.0); SODIUM LEVEL 140 MEQ/L (136-145); TOTAL IRON BINDING CAPACITY 349 UG/DL (250-450); TOTAL PROTEIN 7.9 GM/DL (6.4-8.2); TRIGLYCERIDES LEVEL 66 MG/DL (<150)
[2018-02-25 13:10] LABS: POTASSIUM SERUM 5.6 MEQ/L (3.5-5.1)
== END ==
LOC: M SFHCPLAZ 10:00
DX: N18.2 Chronic kidney disease, stage 2 (mild) (principal); R73.01 Impaired fasting glucose; Z85.46 Personal history of malignant neoplasm of prostate
CPT/HCPCS: 83550

== ENCOUNTER → 2018-06-30 | Outpatient (REF) | payer BC ==
[2018-06-30 12:51] LABS: ALBUMIN 4.4 GM/DL (3.2-5.2); ALBUMIN/GLOBULIN RATIO 1.47 (1.00-1.93); ALKALINE PHOSPHATASE 99 U/L (45-117); ALT/SGPT 45 U/L (12-78); ANION GAP 5 MEQ/L (8-16); AST/SGOT 31 U/L (7-37); BILIRUBIN,TOTAL 0.5 MG/DL (0.2-1.0); BLOOD UREA NITROGEN 14 MG/DL (7-18); C REACTIVE PROTEIN QUANTITATIV < 0.30 MG/DL (0.00-0.30); CALCIUM LEVEL 8.9 MG/DL (8.5-10.1); CARBON DIOXIDE LEVEL 28 MEQ/L (21-32); CHLORIDE LEVEL 105 MEQ/L (98-107); CHOLESTEROL LEVEL 207 MG/DL (<200); CHOLESTEROL RISK RATIO 4.312 (<5); CPK CREATINE PHOSPHOKINASE 257 U/L (39-308); CREATININE FOR GFR 1.17 MG/DL (0.70-1.30); GLOMERULAR FILTRATION RATE > 60.0 (>56); GLUCOSE, FASTING 99 MG/DL (70-100); HDL CHOLESTEROL 48 MG/DL (>40); LDL CHOLESTEROL 141 MG/DL (<100); MAGNESIUM LEVEL 2.3 MG/DL (1.8-2.4); NON-HDL-C 159 MG/DL; POTASSIUM SERUM 5.4 MEQ/L (3.5-5.1); SODIUM LEVEL 138 MEQ/L (136-145); TOTAL PROTEIN 7.4 GM/DL (6.4-8.2); TRIGLYCERIDES LEVEL 92 MG/DL (<150)
[2018-06-30 12:54] LABS: ESTIMATED AVERAGE GLUCOSE 126 MG/DL (60-110)
== END ==
LOC: M SFHCPLAZ 09:45
DX: E78.5 Hyperlipidemia, unspecified (principal); R73.01 Impaired fasting glucose; E53.8 Deficiency of other specified B group vitamins

== ENCOUNTER 2018-11-23 22:50 | Emergency (ER) | payer BC ==
[2018-11-23] MEDS ORDERED: MORPHINE 4 MG/ML 1ML VIAL/SYRINGE (J2270) IV ONE (23:30)
[2018-11-23] MEDS ORDERED: ONDANSETRON 4MG/2ML VIAL (J2405) As Ordered ONE (23:36)
[2018-11-23] MEDS ORDERED: ONDANSETRON 4MG/2ML VIAL (J2405) IV ONE (23:45)
[2018-11-24] MEDS ORDERED: LIDOCAINE W/EPINEPHRINE 1% 20ML VIAL SC ONE (00:45)
[2018-11-24] MEDS ORDERED: MOXIFLOXACIN 400 MG TAB PO ONE (02:00)
[2018-11-24] MEDS ORDERED: AVEL1TAB3 PO (02:02)
[2018-11-24 03:09] VITALS: BP 118/64
== END 2018-11-24 03:10 | disposition home or self-care (01) ==
LOC: M ED 22:50
DX: S41.112A Laceration without foreign body of left upper arm, initial encounter (principal); S51.812A Laceration without foreign body of left forearm, initial encounter; S51.811A Laceration without foreign body of right forearm, initial encounter; S61.411A Laceration without foreign body of right hand, initial encounter; W54.0XXA Bitten by dog, initial encounter; Y92.099 Unspecified place in other non-institutional residence as the place of occurrence of the external cause; Y93.9 Activity, unspecified; Y99.9 Unspecified external cause status; E11.9 Type 2 diabetes mellitus without complications; K58.9 Irritable bowel syndrome, unspecified; E78.5 Hyperlipidemia, unspecified; Z85.46 Personal history of malignant neoplasm of prostate; F10.21 Alcohol dependence, in remission; Z79.899 Other long term (current) drug therapy; Z88.6 Allergy status to analgesic agent; Z88.8 Allergy status to other drugs, medicaments and biological substances; Z88.5 Allergy status to narcotic agent; Z88.0 Allergy status to penicillin; Z88.1 Allergy status to other antibiotic agents
CPT/HCPCS: 12002; 96374; 96375; 99284; J2270; J2405

== ENCOUNTER → 2018-12-02 | Outpatient (REF) | payer BC ==
[~2018-12-02] MED LIST changes: +AVEL1TAB3 PO
[2018-12-02 10:41] LABS: APPEARANCE, URINE CLEAR (CLEAR); BACTERIA, URINE AUTO NEGATIVE (NEGATIVE); BILIRUBIN, URINE AUTO NEGATIVE (NEGATIVE); BLOOD, URINE BLOOD NEGATIVE (NEGATIVE); COLOR, URINE YELLOW (YELLOW); GLUCOSE, URINE (UA) AUTO 1+ mg/dL (NEGATIVE); KETONE, URINE AUTO NEGATIVE (NEGATIVE); LEUKOCYTE ESTERASE, URINE AUTO NEGATIVE (NEGATIVE); MUCUS, URINE SMALL (NEGATIVE); NITRITE, URINE AUTO NEGATIVE (NEGATIVE); PROTEIN, URINE AUTO NEGATIVE (NEGATIVE); RBC, URINE AUTO 0 /HPF (0-3); SPECIFIC GRAVITY URINE AUTO 1.025 (1.002-1.035); SQUAMOUS EPITHELIAL CELL UR AU 0 /HPF (0-6); UROBILINOGEN, URINE AUTO 0.2 mg/dL (0.0-2.0); WBC, URINE AUTO 0 /HPF (0-3)
[2018-12-02 10:52] LABS: BASO # 0.1 10^3/uL (0.0-0.2); BASO % 0.7 % (0.0-1.0); EOS # 0.9 10^3/uL (0.0-0.50); EOS % 9.7 % (0.0-3.0); HEMATOCRIT 48.4 % (42.0-52.0); HEMOGLOBIN 16.1 g/dl (13.5-17.5); LYMPH # 2.4 10^3/uL (1.5-4.5); LYMPH % 24.6 % (24.0-44.0); MEAN CORPUSCULAR HEMOGLOBIN 31.8 pg (27.0-33.0); MEAN CORPUSCULAR HGB CONC 33.3 g/dl (32.0-36.5); MEAN CORPUSCULAR VOLUME 95.5 fl (80.0-96.0); MONO # 1.1 10^3/uL (0.0-0.8); MONO % 11.4 % (0.0-5.0); NEUTROPHILS # 5.2 10^3/uL (1.8-7.7); NEUTROPHILS % 53.3 % (36.0-66.0); PLATELET COUNT, AUTOMATED 377 10^3/uL (150-450); RED BLOOD COUNT 5.07 10^6/uL (4.30-6.10); WHITE BLOOD COUNT 9.7 10^3/uL (4.0-10.0)
[2018-12-02 11:51] LABS: ALBUMIN 4.3 GM/DL (3.2-5.2); ALT/SGPT 64 U/L (12-78); BILIRUBIN,TOTAL 0.7 MG/DL (0.2-1.0); BLOOD UREA NITROGEN 18 MG/DL (7-18); CALCIUM LEVEL 9.2 MG/DL (8.5-10.1); CARBON DIOXIDE LEVEL 27 MEQ/L (21-32); CHLORIDE LEVEL 104 MEQ/L (98-107); CHOLESTEROL LEVEL 119 MG/DL (<200); CREATININE FOR GFR 1.11 MG/DL (0.70-1.30); GLOMERULAR FILTRATION RATE > 60.0 (>56); GLUCOSE, FASTING 100 MG/DL (70-100); HDL CHOLESTEROL 50 MG/DL (>40); LDL CHOLESTEROL 51 MG/DL (<100); NON-HDL-C 69 MG/DL; POTASSIUM SERUM 5.1 MEQ/L (3.5-5.1); SODIUM LEVEL 140 MEQ/L (136-145); TOTAL PROTEIN 7.5 GM/DL (6.4-8.2); TRIGLYCERIDES LEVEL 92 MG/DL (<150)
[2018-12-02 11:52] LABS: MALB URINE SIEMENS 17.6 MG/L; MAU/CREAT RATIO 9.5 MCG/MG (0.0-30.0)
[2018-12-02 12:50] LABS: HEMOGLOBIN A1c 5.9 %
== END ==
LOC: M SFHCPLAZ 08:39
PROVIDERS: ATTEND Family Medicine
DX: N18.2 Chronic kidney disease, stage 2 (mild) (principal); R73.01 Impaired fasting glucose; E78.5 Hyperlipidemia, unspecified

== ENCOUNTER → 2019-04-01 | Outpatient (REF) | payer BC ==
[~2019-04-01] MED LIST changes: -/TAMS4CA PO; -ACET50TA PO; +FLOM0.4C39 PO; +MAPA500T17 PO
[2019-04-01 10:13] LABS: BASO # 0.1 10^3/uL (0.0-0.2); BASO % 0.6 % (0.0-1.0); EOS # 0.4 10^3/uL (0.0-0.50); EOS % 3.3 % (0.0-3.0); HEMATOCRIT 47.6 % (42.0-52.0); HEMOGLOBIN 15.8 g/dl (13.5-17.5); LYMPH # 2.7 10^3/uL (1.5-4.5); LYMPH % 20.4 % (24.0-44.0); MEAN CORPUSCULAR HEMOGLOBIN 31.4 pg (27.0-33.0); MEAN CORPUSCULAR HGB CONC 33.2 g/dl (32.0-36.5); MEAN CORPUSCULAR VOLUME 94.6 fl (80.0-96.0); MONO # 1.3 10^3/uL (0.0-0.8); MONO % 9.9 % (0.0-5.0); NEUTROPHILS # 8.7 10^3/uL (1.8-7.7); NEUTROPHILS % 65.4 % (36.0-66.0); PLATELET COUNT, AUTOMATED 334 10^3/uL (150-450); RED BLOOD COUNT 5.03 10^6/uL (4.30-6.10); WHITE BLOOD COUNT 13.3 10^3/uL (4.0-10.0)
[2019-04-01 10:21] LABS: ALBUMIN 3.8 GM/DL (3.2-5.2); ALT/SGPT 50 U/L (12-78); BILIRUBIN,TOTAL 0.4 MG/DL (0.2-1.0); BLOOD UREA NITROGEN 14 MG/DL (7-18); CARBON DIOXIDE LEVEL 27 MEQ/L (21-32); CHLORIDE LEVEL 107 MEQ/L (98-107); CREATININE FOR GFR 1.15 MG/DL (0.70-1.30); GLOMERULAR FILTRATION RATE > 60.0 (>56); GLUCOSE, FASTING 105 MG/DL (70-100); POTASSIUM SERUM 4.8 MEQ/L (3.5-5.1); PROSTATIC SPECIFIC AG MONITOR < 0.01 NG/ML (< 4.00); SODIUM LEVEL 140 MEQ/L (136-145); TOTAL PROTEIN 7.2 GM/DL (6.4-8.2)
[2019-04-01 10:32] LABS: HEMOGLOBIN A1c 6.2 %
[2019-04-01 10:43] LABS: TOTAL 25(OH) VITAMIN D 25.9 NG/ML (30.0-100.0)
[2019-04-01 10:44] LABS: PTH INTACT 29.7 PG/ML (18.5-88.0)
== END ==
LOC: M SFHCPLAZ 08:37
PROVIDERS: ATTEND Family Medicine
DX: R73.01 Impaired fasting glucose (principal); N18.2 Chronic kidney disease, stage 2 (mild); Z85.46 Personal history of malignant neoplasm of prostate

== ENCOUNTER → 2019-10-05 | Outpatient (CLI) | payer BC ==
[2019-10-05 13:25] LABS: HEMATOCRIT 50.5 % (42.0-52.0)
[2019-10-05 13:56] LABS: ALBUMIN 3.9 GM/DL (3.2-5.2); ALT/SGPT 39 U/L (12-78); BILIRUBIN,TOTAL 0.6 MG/DL (0.2-1.0); BLOOD UREA NITROGEN 18 MG/DL (7-18); CALCIUM LEVEL 9.5 MG/DL (8.5-10.1); CARBON DIOXIDE LEVEL 27 MEQ/L (21-32); CHLORIDE LEVEL 106 MEQ/L (98-107); CHOLESTEROL LEVEL 189 MG/DL (<200); CHOLESTEROL RISK RATIO 3.857 (<5); CREATININE FOR GFR 1.23 MG/DL (0.70-1.30); FREE T4 0.79 NG/DL (0.76-1.46); GLOMERULAR FILTRATION RATE > 60.0 (>56); GLUCOSE, FASTING 94 MG/DL (70-100); HDL CHOLESTEROL 49 MG/DL (>40); LDL CHOLESTEROL 119 MG/DL (<100); NON-HDL-C 140 MG/DL; SODIUM LEVEL 139 MEQ/L (136-145); TOTAL PROTEIN 7.4 GM/DL (6.4-8.2); TRIGLYCERIDES LEVEL 107 MG/DL (<150); VITAMIN B12 LEVEL 897 PG/ML (247-911)
[2019-10-05 14:14] LABS: APPEARANCE, URINE CLEAR (CLEAR); BACTERIA, URINE AUTO NEGATIVE (NEGATIVE); BILIRUBIN, URINE AUTO NEGATIVE (NEGATIVE); BLOOD, URINE BLOOD NEGATIVE (NEGATIVE); COLOR, URINE YELLOW (YELLOW); GLUCOSE, URINE (UA) AUTO 1+ mg/dL (NEGATIVE); KETONE, URINE AUTO NEGATIVE (NEGATIVE); LEUKOCYTE ESTERASE, URINE AUTO NEGATIVE (NEGATIVE); NITRITE, URINE AUTO NEGATIVE (NEGATIVE); PROTEIN, URINE AUTO NEGATIVE (NEGATIVE); RBC, URINE AUTO 0 /HPF (0-3); SPECIFIC GRAVITY URINE AUTO 1.015 (1.002-1.035); SQUAMOUS EPITHELIAL CELL UR AU 0 /HPF (0-6); UROBILINOGEN, URINE AUTO 0.2 mg/dL (0.0-2.0); WBC, URINE AUTO 0 /HPF (0-3)
[2019-10-05 14:33] LABS: MALB URINE SIEMENS 6.2 MG/L; MAU/CREAT RATIO 5.7 MCG/MG (0.0-30.0)
== END ==
LOC: M PLALAB 09:49
PROVIDERS: ATTEND Family Medicine
DX: R73.01 Impaired fasting glucose (principal); E78.5 Hyperlipidemia, unspecified; E53.8 Deficiency of other specified B group vitamins

== ENCOUNTER → 2020-03-12 | Outpatient (CLI) | payer BC ==
[2020-03-12 12:11] LABS: BASO # 0.1 10^3/uL (0.0-0.2); BASO % 0.7 % (0.0-1.0); EOS # 0.3 10^3/uL (0.0-0.5); HEMATOCRIT 49.5 % (42.0-52.0); HEMOGLOBIN 16.2 g/dl (13.5-17.5); LYMPH # 2.8 10^3/uL (1.5-5.0); LYMPH % 30.6 % (24.0-44.0); MEAN CORPUSCULAR HEMOGLOBIN 31.3 pg (27.0-33.0); MEAN CORPUSCULAR HGB CONC 32.7 g/dl (32.0-36.5); MEAN CORPUSCULAR VOLUME 95.7 fl (80.0-96.0); MONO % 10.8 % (0.0-5.0); NEUTROPHILS # 4.9 10^3/uL (1.5-8.5); NEUTROPHILS % 54.3 % (36.0-66.0); PLATELET COUNT, AUTOMATED 361 10^3/uL (150-450); RED BLOOD COUNT 5.17 10^6/uL (4.30-6.10)
[2020-03-12 12:24] LABS: THYROID PEROXIDASE ANTIBODY 45.4 U/ML (<60.0)
[2020-03-12 13:07] LABS: ALBUMIN 3.8 GM/DL (3.2-5.2); ALT/SGPT 40 U/L (12-78); BILIRUBIN,TOTAL 0.8 MG/DL (0.2-1.0); BLOOD UREA NITROGEN 18 MG/DL (7-18); CALCIUM LEVEL 9.4 MG/DL (8.5-10.1); CARBON DIOXIDE LEVEL 25 MEQ/L (21-32); CHLORIDE LEVEL 106 MEQ/L (98-107); CREATININE FOR GFR 1.23 MG/DL (0.70-1.30); FERRITIN 163 NG/ML (26-388); FREE T4 0.84 NG/DL (0.76-1.46); GLOMERULAR FILTRATION RATE > 60.0 (>56); GLUCOSE, FASTING 104 MG/DL (70-100); POTASSIUM SERUM 4.9 MEQ/L (3.5-5.1); PROSTATIC SPECIFIC AG MONITOR < 0.01 NG/ML (< 4.00); SODIUM LEVEL 137 MEQ/L (136-145); TOTAL PROTEIN 7.4 GM/DL (6.4-8.2)
[2020-03-12 14:58] LABS: HEMATOCRIT 49.5 % (42.0-52.0)
== END ==
LOC: M PLALAB 09:13
PROVIDERS: ATTEND Family Medicine
DX: N52.9 Male erectile dysfunction, unspecified (principal); E78.5 Hyperlipidemia, unspecified; Z14.8 Genetic carrier of other disease; E53.8 Deficiency of other specified B group vitamins; R73.01 Impaired fasting glucose; Z85.46 Personal history of malignant neoplasm of prostate

== ENCOUNTER → 2020-08-02 | Outpatient (REF) | payer BC ==
[2020-08-02 13:38] LABS: APPEARANCE, URINE CLEAR (CLEAR); BACTERIA, URINE AUTO NEGATIVE (NEGATIVE); BILIRUBIN, URINE AUTO NEGATIVE (NEGATIVE); BLOOD, URINE BLOOD NEGATIVE (NEGATIVE); COLOR, URINE YELLOW (YELLOW); GLUCOSE, URINE (UA) AUTO 2+ mg/dL (NEGATIVE); KETONE, URINE AUTO NEGATIVE (NEGATIVE); LEUKOCYTE ESTERASE, URINE AUTO NEGATIVE (NEGATIVE); MUCUS, URINE SMALL (NEGATIVE); NITRITE, URINE AUTO NEGATIVE (NEGATIVE); PROTEIN, URINE AUTO NEGATIVE (NEGATIVE); RBC, URINE AUTO 0 /HPF (0-3); SPECIFIC GRAVITY URINE AUTO 1.019 (1.002-1.035); SQUAMOUS EPITHELIAL CELL UR AU 0 /HPF (0-6); UROBILINOGEN, URINE AUTO 0.2 mg/dL (0.0-2.0); WBC, URINE AUTO 0 /HPF (0-3)
[2020-08-02 13:49] LABS: ALBUMIN 3.9 GM/DL (3.2-5.2); ALT/SGPT 37 U/L (12-78); BILIRUBIN,TOTAL 0.5 MG/DL (0.2-1.0); BLOOD UREA NITROGEN 17 MG/DL (7-18); C REACTIVE PROTEIN QUANTITATIV 0.66 MG/DL (0.00-0.30); CALCIUM LEVEL 9.1 MG/DL (8.8-10.2); CARBON DIOXIDE LEVEL 28 MEQ/L (21-32); CHLORIDE LEVEL 107 MEQ/L (98-107); CHOLESTEROL LEVEL 222 MG/DL (<200); CHOLESTEROL RISK RATIO 4.352 (<5); CPK CREATINE PHOSPHOKINASE 219 U/L (39-308); CREATININE FOR GFR 1.18 MG/DL (0.70-1.30); GLOMERULAR FILTRATION RATE > 60.0 (>49); GLUCOSE, FASTING 103 MG/DL (70-100); HDL CHOLESTEROL 51 MG/DL (>40); LDL CHOLESTEROL 147 MG/DL (<100); NON-HDL-C 171 MG/DL; POTASSIUM SERUM 5.4 MEQ/L (3.5-5.1); SODIUM LEVEL 139 MEQ/L (136-145); TOTAL PROTEIN 7.3 GM/DL (6.4-8.2); TRIGLYCERIDES LEVEL 120 MG/DL (<150)
[2020-08-02 14:20] LABS: MALB URINE SIEMENS 16.3 MG/L; MAU/CREAT RATIO 14.2 MCG/MG (0.0-30.0)
[2020-08-03 14:13] LABS: ANTINUCLEAR ANTIBODIES DIRECT Negative (Negative); Lyme Disease IgG/IgM Antibodie <0.91 ISR (0.00-0.90); Lyme Disease IgM Ab Quantitati <0.80 index (0.00-0.79)
== END ==
LOC: M SFHCPLAZ 10:51
PROVIDERS: ATTEND Physician Assistant
DX: E78.5 Hyperlipidemia, unspecified (principal); R73.01 Impaired fasting glucose; M25.562 Pain in left knee; M25.572 Pain in left ankle and joints of left foot; M54.2 Cervicalgia; R53.83 Other fatigue

== ENCOUNTER → 2020-10-25 | Outpatient (CLI) | payer BC | LOC: M LABSMTC 13:43 | PROVIDERS: ATTEND Pediatrics | DX: Z20.822 Contact with and (suspected) exposure to COVID-19 (principal) | CPT/HCPCS: C9803; U0003 ==

== ENCOUNTER → 2020-12-26 | Outpatient (REF) | payer BC ==
[2020-12-26 14:51] LABS: BASO # 0.1 10^3/uL (0.0-0.2); BASO % 0.7 % (0.0-1.0); EOS # 0.4 10^3/uL (0.0-0.5); EOS % 3.5 % (0.0-3.0); HEMATOCRIT 51.4 % (42.0-52.0); HEMOGLOBIN 16.6 g/dl (13.5-17.5); LYMPH # 2.9 10^3/uL (1.5-5.0); LYMPH % 26.6 % (24.0-44.0); MEAN CORPUSCULAR HEMOGLOBIN 31.1 pg (27.0-33.0); MEAN CORPUSCULAR HGB CONC 32.3 g/dl (32.0-36.5); MEAN CORPUSCULAR VOLUME 96.4 fl (80.0-96.0); MONO # 1.2 10^3/uL (0.0-0.8); MONO % 11.3 % (2.0-8.0); NEUTROPHILS # 6.2 10^3/uL (1.5-8.5); NEUTROPHILS % 57.4 % (36.0-66.0); PLATELET COUNT, AUTOMATED 411 10^3/uL (150-450); RED BLOOD COUNT 5.33 10^6/uL (4.30-6.10); WHITE BLOOD COUNT 10.8 10^3/uL (4.0-10.0)
[2020-12-26 15:19] LABS: ALT/SGPT 44 U/L (12-78); BILIRUBIN,TOTAL 0.6 MG/DL (0.2-1.0); BLOOD UREA NITROGEN 16 MG/DL (7-18); CALCIUM LEVEL 9.5 MG/DL (8.8-10.2); CARBON DIOXIDE LEVEL 29 MEQ/L (21-32); CHLORIDE LEVEL 107 MEQ/L (98-107); CHOLESTEROL LEVEL 216 MG/DL (<200); CHOLESTEROL RISK RATIO 4.153 (<5); CPK CREATINE PHOSPHOKINASE 197 U/L (39-308); CREATININE FOR GFR 1.17 MG/DL (0.70-1.30); FERRITIN 266 NG/ML (26-388); GLOMERULAR FILTRATION RATE > 60.0 (>49); GLUCOSE, FASTING 107 MG/DL (70-100); HDL CHOLESTEROL 52 MG/DL (>40); LDL CHOLESTEROL 137 MG/DL (<100); NON-HDL-C 164 MG/DL; POTASSIUM SERUM 5.1 MEQ/L (3.5-5.1); SODIUM LEVEL 140 MEQ/L (136-145); TOTAL PROTEIN 7.4 GM/DL (6.4-8.2); TRIGLYCERIDES LEVEL 133 MG/DL (<150)
[2020-12-26 15:26] LABS: VITAMIN B12 LEVEL 714 PG/ML (247-911)
[2020-12-26 15:28] LABS: HEMOGLOBIN A1c 6.2 %
== END ==
LOC: M SFHCPLAZ 09:30
PROVIDERS: ATTEND Family Medicine
DX: E78.5 Hyperlipidemia, unspecified (principal); R73.01 Impaired fasting glucose; I10 Essential (primary) hypertension; E53.8 Deficiency of other specified B group vitamins

== ENCOUNTER → 2021-07-18 | Outpatient (CLI) | payer BC ==
[2021-07-18 15:37] LABS: HEMATOCRIT 51.5 % (42.0-52.0); HEMOGLOBIN 16.7 g/dl (13.5-17.5); MEAN CORPUSCULAR HEMOGLOBIN 31.3 pg (27.0-33.0); MEAN CORPUSCULAR HGB CONC 32.4 g/dl (32.0-36.5); MEAN CORPUSCULAR VOLUME 96.4 fl (80.0-96.0); PLATELET COUNT, AUTOMATED 380 10^3/uL (150-450); RED BLOOD COUNT 5.34 10^6/uL (4.30-6.10); WHITE BLOOD COUNT 10.7 10^3/uL (4.0-10.0)
[2021-07-18 15:48] LABS: ALBUMIN 4.1 GM/DL (3.2-5.2); ALT/SGPT 48 U/L (12-78); BILIRUBIN,TOTAL 0.6 MG/DL (0.2-1.0); BLOOD UREA NITROGEN 16 MG/DL (7-18); CALCIUM LEVEL 9.9 MG/DL (8.8-10.2); CARBON DIOXIDE LEVEL 31 MEQ/L (21-32); CHLORIDE LEVEL 106 MEQ/L (98-107); CREATININE FOR GFR 1.27 MG/DL (0.70-1.30); GLOMERULAR FILTRATION RATE > 60.0 (>49); GLUCOSE, FASTING 104 MG/DL (70-100); POTASSIUM SERUM 5.6 MEQ/L (3.5-5.1); SODIUM LEVEL 138 MEQ/L (136-145); TOTAL PROTEIN 7.7 GM/DL (6.4-8.2)
[2021-07-18 16:11] LABS: ERYTHROCYTE SEDIMENTATION RATE 2 mm/hr (0-20)
== END ==
LOC: M PLALAB 09:15
PROVIDERS: ATTEND Physician Assistant Medical
DX: S10.96XA Insect bite of unspecified part of neck, initial encounter (principal); Y92.9 Unspecified place or not applicable; Y93.9 Activity, unspecified; Y99.9 Unspecified external cause status

== ENCOUNTER → 2021-07-23 | Outpatient (CLI) | payer BC ==
[2021-07-23 14:04] LABS: CALCIUM LEVEL 9.7 MG/DL (8.8-10.2); CREATININE FOR GFR 1.31 MG/DL (0.70-1.30); GLOMERULAR FILTRATION RATE 59.2 (>49); POTASSIUM SERUM 4.5 MEQ/L (3.5-5.1)
== END ==
LOC: M PLALAB 09:52
PROVIDERS: ATTEND Physician Assistant Medical
DX: E87.5 Hyperkalemia (principal)

== ENCOUNTER → 2022-05-07 | Outpatient (CLI) | payer BC ==
[2022-05-07 15:43] LABS: BASO % 0.5 % (0.0-1.0); EOS % 0.1 % (0.0-3.0); HEMATOCRIT 48.5 % (42.0-52.0); HEMOGLOBIN 15.7 g/dl (13.5-17.5); LYMPH # 1.1 10^3/uL (1.5-5.0); LYMPH % 13.6 % (24.0-44.0); MEAN CORPUSCULAR HEMOGLOBIN 30.8 pg (27.0-33.0); MEAN CORPUSCULAR HGB CONC 32.4 g/dl (32.0-36.5); MEAN CORPUSCULAR VOLUME 95.3 fl (80.0-96.0); MONO % 22.8 % (2.0-8.0); NEUTROPHILS # 5.2 10^3/uL (1.5-8.5); NEUTROPHILS % 62.3 % (36.0-66.0); PLATELET COUNT, AUTOMATED 179 10^3/uL (150-450); RED BLOOD COUNT 5.09 10^6/uL (4.30-6.10); WHITE BLOOD COUNT 8.3 10^3/uL (4.0-10.0)
[2022-05-07 16:10] LABS: MONO # 1.9 10^3/uL (0.0-0.8)
[2022-05-07 16:59] LABS: ALBUMIN 3.8 GM/DL (3.2-5.2); ALT/SGPT 46 U/L (12-78); BILIRUBIN,TOTAL 1.9 MG/DL (0.2-1.0); BLOOD UREA NITROGEN 15 MG/DL (7-18); CALCIUM LEVEL 9.1 MG/DL (8.8-10.2); CARBON DIOXIDE LEVEL 26 MEQ/L (21-32); CHLORIDE LEVEL 103 MEQ/L (98-107); CREATININE FOR GFR 1.29 MG/DL (0.70-1.30); GLOMERULAR FILTRATION RATE > 60.0 (>49); GLUCOSE, FASTING 115 MG/DL (70-100); POTASSIUM SERUM 4.5 MEQ/L (3.5-5.1); SODIUM LEVEL 133 MEQ/L (136-145); TOTAL PROTEIN 7.5 GM/DL (6.4-8.2)
[2022-05-07 17:00] LABS: ERYTHROCYTE SEDIMENTATION RATE 6 mm/hr (0-20)
== END ==
LOC: M PLALAB 12:54
PROVIDERS: ATTEND Physician Assistant
DX: R50.9 Fever, unspecified (principal); R30.0 Dysuria; R21 Rash and other nonspecific skin eruption; S20.361A Insect bite (nonvenomous) of right front wall of thorax, initial encounter; W57.XXXA Bitten or stung by nonvenomous insect and other nonvenomous arthropods, initial encounter; Y92.9 Unspecified place or not applicable

== ENCOUNTER → 2022-05-09 | Outpatient (REF) | payer BC | LOC: M LAB REF 18:25 | PROVIDERS: ATTEND Physician Assistant | DX: R39.198 Other difficulties with micturition (principal) ==

== ENCOUNTER 2023-02-22 16:27 | Emergency (ER) | payer BC ==
[~2023-02-22] VITALS: Ht 172.7 cm; Wt 85.7 kg
[2023-02-22 16:28] VITALS: BP 168/98
[2023-02-22] MEDS ORDERED: FLUORESCEIN OPHTH 1MG STRIP OS ONE (17:30)
[2023-02-22] MEDS ORDERED: PROPARACAINE 0.5% OPHTH SOL 15ML OS ONE (17:30)
[2023-02-22] MEDS ORDERED: ERYTHROMYCIN OPHTH OINT OS ONE (19:10)
[2023-02-22] MEDS ORDERED: ERYT5OIN25 OP (19:11)
== END 2023-02-22 19:31 | disposition home or self-care (01) ==
LOC: M ED 16:27
DX: S05.02XA Injury of conjunctiva and corneal abrasion without foreign body, left eye, initial encounter (principal); H11.32 Conjunctival hemorrhage, left eye; J45.909 Unspecified asthma, uncomplicated; I10 Essential (primary) hypertension; Z86.79 Personal history of other diseases of the circulatory system; Z88.0 Allergy status to penicillin; Z88.7 Allergy status to serum and vaccine; Z88.5 Allergy status to narcotic agent; Z79.1 Long term (current) use of non-steroidal anti-inflammatories (NSAID); Z79.811 Long term (current) use of aromatase inhibitors; Z79.899 Other long term (current) drug therapy

== ENCOUNTER → 2023-06-04 | Outpatient (CLI) | payer BC ==
[~2023-06-04] MED LIST changes: +ERYT5OIN25 OP
[2023-06-04 15:27] LABS: BASO # 0.1 10^3/uL (0.0-0.2); BASO % 0.6 % (0.0-1.0); EOS # 0.4 10^3/uL (0.0-0.5); EOS % 4.1 % (0.0-3.0); HEMATOCRIT 50.5 % (42.0-52.0); HEMOGLOBIN 16.3 g/dl (13.5-17.5); LYMPH # 2.5 10^3/uL (1.5-5.0); LYMPH % 23.9 % (24.0-44.0); MEAN CORPUSCULAR HEMOGLOBIN 31.2 pg (27.0-33.0); MEAN CORPUSCULAR HGB CONC 32.3 g/dl (32.0-36.5); MEAN CORPUSCULAR VOLUME 96.6 fl (80.0-96.0); MONO # 1.4 10^3/uL (0.0-0.8); MONO % 12.8 % (2.0-8.0); NEUTROPHILS # 6.2 10^3/uL (1.5-8.5); NEUTROPHILS % 58.2 % (36.0-66.0); PLATELET COUNT, AUTOMATED 424 10^3/uL (150-450); RED BLOOD COUNT 5.23 10^6/uL (4.30-6.10); WHITE BLOOD COUNT 10.6 10^3/uL (4.0-10.0)
[2023-06-04 15:38] LABS: ALBUMIN 3.9 G/DL (3.2-5.2); ALKALINE PHOSPHATASE 87 U/L (46-116); ALT/SGPT 53 U/L (7.0-40); AST/SGOT 41 U/L (<34); BILIRUBIN,TOTAL 0.8 MG/DL (0.3-1.2); BLOOD UREA NITROGEN 16 MG/DL (9-23); CALCIUM LEVEL 9.5 MG/DL (8.3-10.6); CARBON DIOXIDE LEVEL 29 MMOL/L (20-31); CHLORIDE LEVEL 104 MMOL/L (98-107); GLOMERULAR FILTRATION RATE > 60.0 (>49); GLUCOSE, FASTING 112 MG/DL (74-106); POTASSIUM SERUM 5.1 MMOL/L (3.5-5.1); SODIUM LEVEL 141 MMOL/L (136-145); TOTAL PROTEIN 7.3 G/DL (5.7-8.2)
[2023-06-04 15:39] LABS: PROSTATIC SPECIFIC AG MONITOR 0.04 NG/ML (< 4.00)
[2023-06-04 15:43] LABS: FERRITIN 229.8 NG/ML (10.5-307.3)
[2023-06-04 15:47] LABS: TOTAL 25(OH) VITAMIN D 30.9 NG/ML (20.0-100.0)
[2023-06-04 16:11] LABS: HEMOGLOBIN A1c 6.2 % (4.0-6.0)
[2023-06-05 08:51] LABS: PTH INTACT 35.2 PG/ML (18.5-88.0)
[2023-06-06 15:10] LABS: H PYLORI SERUM QUANT IgG ABY 0.29 (0.00-0.79); INSULIN LEVEL 16.1 uIU/mL (2.6-24.9); SOLUBLE TRANSFERRIN RECEPTOR 15.4 nmol/L (12.2-27.3)
== END ==
LOC: M PLALAB 09:10
PROVIDERS: ATTEND Family Medicine
DX: R73.01 Impaired fasting glucose (principal); E53.8 Deficiency of other specified B group vitamins; Z14.8 Genetic carrier of other disease; E55.9 Vitamin D deficiency, unspecified; K21.9 Gastro-esophageal reflux disease without esophagitis; Z85.46 Personal history of malignant neoplasm of prostate

== ENCOUNTER → 2023-10-20 | Outpatient (CLI) | payer BC ==
[2023-10-20 13:59] LABS: BASO # 0.1 10^3/uL (0.0-0.2); BASO % 0.7 % (0.0-1.0); EOS # 0.4 10^3/uL (0.0-0.5); EOS % 3.9 % (0.0-3.0); HEMATOCRIT 51.1 % (42.0-52.0); LYMPH # 2.5 10^3/uL (1.5-5.0); LYMPH % 26.6 % (24.0-44.0); MEAN CORPUSCULAR HEMOGLOBIN 31.1 pg (27.0-33.0); MEAN CORPUSCULAR HGB CONC 33.3 g/dl (32.0-36.5); MEAN CORPUSCULAR VOLUME 93.6 fl (80.0-96.0); MONO # 1.1 10^3/uL (0.0-0.8); MONO % 11.8 % (2.0-8.0); NEUTROPHILS # 5.3 10^3/uL (1.5-8.5); NEUTROPHILS % 56.7 % (36.0-66.0); PLATELET COUNT, AUTOMATED 360 10^3/uL (150-450); RED BLOOD COUNT 5.46 10^6/uL (4.30-6.10); WHITE BLOOD COUNT 9.3 10^3/uL (4.0-10.0)
[2023-10-20 14:19] LABS: HEMOGLOBIN A1c 5.9 % (4.0-6.0)
[2023-10-20 14:23] LABS: PROSTATIC SPECIFIC AG MONITOR 0.04 NG/ML (< 4.00)
[2023-10-20 14:26] LABS: CREATININE, URINE 103.2 MG/DL; MALB URINE SIEMENS < 3.0 MG/L; MAU/CREAT RATIO 2.9 MCG/MG (0.0-30.0)
[2023-10-20 14:28] LABS: ALBUMIN 4.3 G/DL (3.2-5.2); ALKALINE PHOSPHATASE 96 U/L (46-116); ALT/SGPT 37 U/L (7.0-40); AST/SGOT 31 U/L (<34); BLOOD UREA NITROGEN 14 MG/DL (9-23); CALCIUM LEVEL 9.9 MG/DL (8.3-10.6); CARBON DIOXIDE LEVEL 29 MMOL/L (20-31); CHLORIDE LEVEL 105 MMOL/L (98-107); CHOLESTEROL LEVEL 213 MG/DL (<200); CREATININE FOR GFR 1.09 MG/DL (0.70-1.30); GLOMERULAR FILTRATION RATE > 60.0 (>49); GLUCOSE, FASTING 108 MG/DL (74-106); LDL CHOLESTEROL 138.6 MG/DL (<100); POTASSIUM SERUM 5.4 MMOL/L (3.5-5.1); SODIUM LEVEL 136 MMOL/L (136-145); TOTAL PROTEIN 7.9 G/DL (5.7-8.2); TRIGLYCERIDES LEVEL 92 MG/DL (<150)
== END ==
LOC: M PLALAB 09:16
PROVIDERS: ATTEND Family Medicine
DX: Z85.46 Personal history of malignant neoplasm of prostate (principal); R73.01 Impaired fasting glucose; E78.5 Hyperlipidemia, unspecified; D75.89 Other specified diseases of blood and blood-forming organs

== ENCOUNTER → 2023-10-20 | Outpatient (CLI) | payer BC ==
[2023-10-20 13:58] LABS: HEMATOCRIT 50.5 % (42.0-52.0); HEMOGLOBIN 16.8 g/dl (13.5-17.5); MEAN CORPUSCULAR HEMOGLOBIN 31.1 pg (27.0-33.0); MEAN CORPUSCULAR HGB CONC 33.3 g/dl (32.0-36.5); MEAN CORPUSCULAR VOLUME 93.5 fl (80.0-96.0); PLATELET COUNT, AUTOMATED 366 10^3/uL (150-450); WHITE BLOOD COUNT 9.5 10^3/uL (4.0-10.0)
[2023-10-20 14:29] LABS: ALBUMIN 4.1 G/DL (3.2-5.2); ALKALINE PHOSPHATASE 94 U/L (46-116); ALT/SGPT 36 U/L (7.0-40); AST/SGOT 28 U/L (<34); BILIRUBIN,TOTAL 0.9 MG/DL (0.3-1.2); BLOOD UREA NITROGEN 14 MG/DL (9-23); CALCIUM LEVEL 9.8 MG/DL (8.3-10.6); CARBON DIOXIDE LEVEL 30 MMOL/L (20-31); CHLORIDE LEVEL 104 MMOL/L (98-107); CREATININE FOR GFR 1.12 MG/DL (0.70-1.30); GLOMERULAR FILTRATION RATE > 60.0 (>49); GLUCOSE, FASTING 110 MG/DL (74-106); POTASSIUM SERUM 5.6 MMOL/L (3.5-5.1); SODIUM LEVEL 137 MMOL/L (136-145); TOTAL PROTEIN 7.6 G/DL (5.7-8.2)
== END ==
LOC: M PLALAB 09:14
PROVIDERS: ATTEND Internal Medicine Cardiovascular Disease
DX: I25.10 Atherosclerotic heart disease of native coronary artery without angina pectoris (principal); R07.9 Chest pain, unspecified

== ENCOUNTER → 2023-11-03 | Outpatient (CLI) | payer BC ==
[2023-11-03 14:15] LABS: BLOOD UREA NITROGEN 14 MG/DL (9-23); CALCIUM LEVEL 9.2 MG/DL (8.3-10.6); CARBON DIOXIDE LEVEL 29 MMOL/L (20-31); CHLORIDE LEVEL 104 MMOL/L (98-107); CREATININE FOR GFR 0.98 MG/DL (0.70-1.30); GLOMERULAR FILTRATION RATE > 60.0 (>49); GLUCOSE, FASTING 88 MG/DL (74-106); POTASSIUM SERUM 4.5 MMOL/L (3.5-5.1); SODIUM LEVEL 137 MMOL/L (136-145)
== END ==
LOC: M PLALAB 10:45
PROVIDERS: ATTEND Internal Medicine Cardiovascular Disease
DX: I10 Essential (primary) hypertension (principal)

== ENCOUNTER → 2023-11-23 | Outpatient (REF) | payer BC | LOC: M SFHCPLAZ 17:58 | PROVIDERS: ATTEND Family Medicine | DX: E78.5 Hyperlipidemia, unspecified (principal); D75.89 Other specified diseases of blood and blood-forming organs; Z53.9 Procedure and treatment not carried out, unspecified reason ==

== ENCOUNTER → 2024-05-26 | Outpatient (CLI) | payer BC ==
[2024-05-26 12:20] LABS: BASO # 0.1 10^3/uL (0.0-0.2); BASO % 0.7 % (0.0-1.0); EOS # 0.6 10^3/uL (0.0-0.5); EOS % 5.3 % (0.0-3.0); HEMATOCRIT 49.3 % (42.0-52.0); HEMOGLOBIN 16.2 g/dl (13.5-17.5); LYMPH % 28.6 % (24.0-44.0); MEAN CORPUSCULAR HEMOGLOBIN 31.3 pg (27.0-33.0); MEAN CORPUSCULAR HGB CONC 32.9 g/dl (32.0-36.5); MEAN CORPUSCULAR VOLUME 95.4 fl (80.0-96.0); MONO # 1.3 10^3/uL (0.0-0.8); MONO % 12.3 % (2.0-8.0); NEUTROPHILS # 5.6 10^3/uL (1.5-8.5); NEUTROPHILS % 52.7 % (36.0-66.0); PLATELET COUNT, AUTOMATED 371 10^3/uL (150-450); RED BLOOD COUNT 5.17 10^6/uL (4.30-6.10); WHITE BLOOD COUNT 10.6 10^3/uL (4.0-10.0)
[2024-05-26 12:36] LABS: ALBUMIN 4.1 G/DL (3.2-5.2); ALKALINE PHOSPHATASE 86 U/L (46-116); ALT/SGPT 41 U/L (7.0-40); AST/SGOT 29 U/L (<34); BLOOD UREA NITROGEN 20 MG/DL (9-23); CALCIUM LEVEL 10.2 MG/DL (8.3-10.6); CARBON DIOXIDE LEVEL 28 MMOL/L (20-31); CHLORIDE LEVEL 105 MMOL/L (98-107); CHOLESTEROL LEVEL 123 MG/DL (<200); CHOLESTEROL RISK RATIO 2.39 (<5); GLOMERULAR FILTRATION RATE > 60.0 (>49); GLUCOSE, FASTING 100 MG/DL (74-106); HDL CHOLESTEROL 51.3 MG/DL (>40); LDL CHOLESTEROL 49.5 MG/DL (<100); NON-HDL-C 71.7 MG/DL; POTASSIUM SERUM 5.2 MMOL/L (3.5-5.1); SODIUM LEVEL 139 MMOL/L (136-145); TOTAL PROTEIN 7.7 G/DL (5.7-8.2); TRIGLYCERIDES LEVEL 111 MG/DL (<150)
[2024-05-26 12:39] LABS: THYROID STIMULATING HORMONE 3.571 uIU/ML (0.55-4.78)
[2024-05-26 12:40] LABS: FERRITIN 244.2 NG/ML (10.5-307.3)
[2024-05-26 12:41] LABS: FREE T4 1.18 NG/DL (0.89-1.76)
== END ==
LOC: M PLALAB 08:50
PROVIDERS: ATTEND Family Medicine
DX: E78.5 Hyperlipidemia, unspecified (principal); D75.89 Other specified diseases of blood and blood-forming organs

== ENCOUNTER → 2024-06-03 | Outpatient (CLI) | payer BC | LOC: M ADAMS 08:36 | DX: M89.8X5 Other specified disorders of bone, thigh (principal); M16.12 Unilateral primary osteoarthritis, left hip ==

== ENCOUNTER → 2024-06-17 | Outpatient (CLI) | payer BC | LOC: M SOG 08:26 | PROVIDERS: ATTEND Orthopaedic Surgery | DX: M16.0 Bilateral primary osteoarthritis of hip (principal); S32.501S Unspecified fracture of right pubis, sequela; Y93.9 Activity, unspecified; Y92.9 Unspecified place or not applicable ==

== ENCOUNTER → 2025-08-23 | Outpatient (CLI) | payer MEDICARE ==
[2025-08-23 15:17] LABS: BASO # 0.1 10^3/uL (0.0-0.2); BASO % 0.6 % (0.0-1.0); EOS # 0.3 10^3/uL (0.0-0.5); EOS % 2.6 % (0.0-3.0); LYMPH # 3.3 10^3/uL (1.5-5.0); LYMPH % 28.6 % (24.0-44.0); MONO # 1.7 10^3/uL (0.0-0.8); MONO % 14.6 % (2.0-8.0); NEUTROPHILS # 6.0 10^3/uL (1.5-8.5); NEUTROPHILS % 53.3 % (36.0-66.0); PLATELET COUNT, AUTOMATED 369 10^3/uL (150-450)
[2025-08-23 15:24] LABS: ALT/SGPT 35.0 U/L (7.0-40); AST/SGOT 29.0 U/L (<34); CALCIUM LEVEL 9.8 MG/DL (8.3-10.6); CARBON DIOXIDE LEVEL 30.0 MMOL/L (20-31); CHLORIDE LEVEL 101.0 MMOL/L (98-107); CHOLESTEROL LEVEL 163.0 MG/DL (<200); CHOLESTEROL RISK RATIO 3.39 (<5); CREATININE FOR GFR 1.14 MG/DL (0.70-1.30); GLOMERULAR FILTRATION RATE 71.4 (>49); IRON (FE) 130.0 UG/DL (65-175); LDL CHOLESTEROL 80.2 MG/DL (<100); NON-HDL-C 115.0 MG/DL; PERCENT SATURATION 42.3 % (19.7-50.0); POTASSIUM SERUM 5.0 MMOL/L (3.5-5.1); PROSTATIC SPECIFIC AG MONITOR 0.05 NG/ML (< 4.00); PTH INTACT 43.6 PG/ML (18.5-88.0); SODIUM LEVEL 140.0 MMOL/L (136-145); TRIGLYCERIDES LEVEL 174.0 MG/DL (<150)
[2025-08-23 15:26] LABS: FREE T4 1.01 NG/DL (0.89-1.76)
[2025-08-23 15:27] LABS: VITAMIN B12 LEVEL 615.0 PG/ML (211-911)
[2025-08-23 15:29] LABS: TOTAL 25(OH) VITAMIN D 28.0 NG/ML (20.0-100.0)
[2025-08-23 15:34] LABS: ESTIMATED AVERAGE GLUCOSE 123.0 MG/DL (60-110)
== END ==
LOC: M PLALAB 10:17
PROVIDERS: ATTEND Family Medicine
DX: E53.8 Deficiency of other specified B group vitamins (principal); E78.5 Hyperlipidemia, unspecified; Z14.8 Genetic carrier of other disease; E55.9 Vitamin D deficiency, unspecified; R73.01 Impaired fasting glucose; Z85.46 Personal history of malignant neoplasm of prostate; K76.0 Fatty (change of) liver, not elsewhere classified

== ENCOUNTER → 2025-09-05 | Outpatient (REF) | payer MEDICARE ==
[2025-09-08 19:22] LABS: LYME TOTAL ANTIBODY CIA 1.57 Index (<=0.90)
[2025-09-08 22:23] LABS: LYME AB IGG BY CIA 2.96 Index (<=0.90); LYME AB IGM BY CIA <= 0.90 Index (<=0.90)
== END ==
LOC: M SFHCADAM 11:14
PROVIDERS: ATTEND Family Medicine
DX: Z11.9 Encounter for screening for infectious and parasitic diseases, unspecified (principal); W57.XXXA Bitten or stung by nonvenomous insect and other nonvenomous arthropods, initial encounter